=== PATIENT | male | born 1985 | race Caucasian/White ===

== ENCOUNTER 2017-12-07 18:15 | Emergency (ER) | payer SELFPAY ==
[2017-12-07 18:19] VITALS: BP 149/80; PULSE 84; RESP 16; TEMP 36.6; O2SAT 99; BMI 31.1
--- NOTE | 2017-12-07 18:37 | DI.RAD.S_ITS ---
PROCEDURE: XR HAND RT MIN 3V INDICATIONS: injury, swelling, red streaks, retained FB? TECHNIQUE: 3 views of the right hand acquired. COMPARISON: None. FINDINGS: Bones: No fractures or dislocations. Carpal bones are normally aligned. No suspicious bony lesions. Soft tissues: There is a small linear density measuring approximately 1 mm within the 1st digit in the volar soft tissues at the level of the 1st proximal phalanx distally. Elsewhere, no definite radiopaque foreign body identified. IMPRESSION: 1. Small linear density within the 1st digit of indeterminate etiology. Recommend correlation with clinical exam and history. Dictated by: Cole Wolfe M.D. on 12/07/2017 at 19:25 Approved by: Cole Wolfe M.D. on 12/07/2017 at 19:30
--- NOTE | 2017-12-07 18:56 | ED.WOUNDLAC ---
HPI - Wound/Laceration General Chief Complaint: Wound/Laceration Stated Complaint: SWELLING OF RT HAND RED LINE Time Seen by Provider: 12/07/17 18:17 Source: patient Mode of arrival: ambulatory Limitations: no limitations History of Present Illness HPI narrative: Patient presents to the emergency department today with a chief complaint of pain, swelling, redness and red streaks on his right hand since a work related injury about 3 weeks ago. He states that he was working in a freezer at work and suffered a small laceration on the dorsum of his right hand and thought nothing of it until the past few days when it started swelling and causing increasing pain he denies any chance of foreign body. He states his tetanus is current Onset (ago): week(s) Extremity Location: Right: hand Place: work Patient tetanus UTD: Yes Context: accidental Associated symptoms: none Treatments prior to arrival: bandage Related Data Previous Rx's Medication Instructions Recorded doxycycline hyclate 100 mg PO BID #20 tab 12/07/17 Allergies Allergy/AdvReac Type Severity Reaction Status Date / Time No Known Drug Allergies Allergy Verified 12/07/17 18:19 Review of Systems Review of Systems All systems reviewed & are unremarkable except as noted in HPI and below Constitutional Denies chills, Denies fever(s), Denies lethargy and Denies weakness Eyes Denies change in vision, Denies eye discharge, Denies irritation and Denies loss of vision ENT Ears, Nose, Mouth, and Throat: Denies change in voice, Denies neck pain and Denies sore throat Cardiovascular Denies chest pain, Denies irregular heart rhythm, Denies lightheadedness, Denies palpitations, Denies dyspnea, Denies dyspnea on exertion and Denies orthopnea Respiratory Denies cough, Denies dyspnea, Denies dyspnea on exertion and Denies wheezing Gastrointestinal Gastrointestinal: Denies abdominal pain, Denies change in bowel habits, Denies diarrhea, Denies nausea and Denies vomiting Musculoskeletal Denies neck pain Integumentary/Breasts Denies pruritus, Reports erythema, Denies rash and Reports wounds Neurologic Denies loss of vision and Denies weakness Endocrine Denies palpitations Allergic/Immunologic Denies wheezing PFSH Social History marital status: unmarried,single household members: other lives independently: Yes caregiver/support person: No housing: house Smoking Status: Never smoker Smokeless tobacco user: chewing tobacco alcohol intake: current substance use type: does not use Exam Narrative Exam Narrative: Healthy, pleasant 32-year-old male in no significant distress, though slightly anxious Initial Vital Signs Initial Vital Signs: Vital Signs Temperature 97.8 F 12/07/17 18:19 Pulse Rate 84 12/07/17 18:19 Respiratory Rate 16 12/07/17 18:19 Blood Pressure 149/80 H 12/07/17 18:19 Pulse Oximetry 99 12/07/17 18:19 Const General: cooperative and well developed Nutritional Appearance: well nourished Orientation: alert, awake, oriented x3 and not confused HENMT Head: normocephalic and atraumatic Ears: external ears normal and TM's normal bilaterally Nose: external nose normal and No nasal discharge Face and sinus: sinuses nontender, face symmetric, no sinus tenderness and No dry mucous membranes Mouth: oral mucosae normal and moist mucous membranes Teeth and gingiva: dentition normal Throat: tonsils normal and uvula midline Resp Effort & Inspection: normal respiratory effort, able to speak in complete sentences, no respiratory distress and no use of accessory muscles Auscultation: clear to auscultation bilaterally, no rales, no rhonchi and no wheezes GI Inspection: non-distended Palpation: soft, no hepatosplenomegaly, No guarding, No pulsatile mass and No tender Auscultation: normal bowel sounds Back/Spine/Pelvis Back: No CVA tenderness Cervical Spine: cervical ROM normal and No pain with cervical ROM Thoracic/Lumbar Spine: thoracic and lumbar spine normal to inspection Skin General: no rashes or lesions noted, erythema, No jaundice and No petechiae Trauma: puncture Other: Small slightly fluctuant poorly healing wound on the volar aspect of right hand in proximal web space of 2nd and 3rd fingers. There is minimal lymphangitis extending up the dorsal aspect of the hand and wrist Procedures Abscess I/D Site: hand Side (if applicable): right Local Anesthetic: lidocaine 1% and with bicarb Amount of anesthesia used (mL): 3 Technique: incised with #11 blade Amount of fluid expressed (mL): 1.0 Irrigation: No Packing used?: none Course Orders Ordered: ED Orders 12/07/17 18:37 XR hand RT min 3V Stat Discontinued Medications Hydrocodone Bitart/Acetaminophen (Vicodin Prepack) 1 bottle MISC SEEINSTR ONE Stop: 12/07/17 19:17 Last Admin: 12/07/17 19:19 Dose: 1 bottle Doxycycline Hyclate (Vibramycin) 100 mg PO NOW ONE Stop: 12/07/17 18:55 Last Admin: 12/07/17 19:19 Dose: 100 mg Vital Signs - 8 hr 12/07/17 18:19 Temperature 97.8 F Pulse Rate 84 Respiratory Rate 16 Blood Pressure 149/80 H Pulse Oximetry 99 MDM - Wound/Laceration Differential Diagnosis Differential diagnosis: Likely laceration, abscess, abrasion and avulsion of skin Medical Records Attestation: I reviewed the patient's medical records. Discharge Plan Departure Patient Disposition: Home, Self-Care Clinical Impression: Abscess Instructions: DI for Skin Abscess Activity Restrictions/Additional Instructions: *You have been diagnosed with [ small abscess right hand ] *What to do: *Take medications as directed *Follow up with your primary care provider in 2-3 days *Return to ER if you should have any new, worsening or concerning symptoms Prescriptions: New doxycycline hyclate 100 mg tablet 100 mg PO BID Qty: 20 RF: 0
[2017-12-07] MEDS: DOXYCYCLINE HYCLATE 100 MG TABLET PO (19:19)
[2017-12-07] MEDS: HYDROCODONE/ACET 5/325 PREPACK 1 BOTTLE MISC (19:19)
[2017-12-07 19:29] VITALS: BP 126/84; PULSE 84; RESP 18; O2SAT 100
== END 2017-12-07 19:30 | disposition home or self-care (01) ==
PROVIDERS: Emergency Provider Emergency Medicine
DX: L02.511 Cutaneous abscess of right hand (principal); Y99.0 Civilian activity done for income or pay
CPT/HCPCS: 10060; 73130; 99283

== ENCOUNTER 2017-12-16 07:04 | Emergency (ER) | payer SELFPAY ==
[2017-12-16 07:23] VITALS: BP 132/85; PULSE 68; RESP 12; TEMP 36.6; O2SAT 100
--- NOTE | 2017-12-16 07:51 | ED.NECK ---
HPI - Neck Pain/Injury General Chief Complaint: Neck Pain/Injury Stated Complaint: TIGHTNESS IN NECK, POSSIBLE STD Time Seen by Provider: 12/16/17 07:10 History of Present Illness HPI Narrative: HPI 32-year-old male presents for evaluation of lower anterior throat mild discomfort that is been present for approximately 7 days and is without sinus congestion, postnasal drip, difficulty swallowing, or neck stiffness. Patient is concerned that he may have an STD as he was sexually active 2 weeks ago with a female partner who now has pending evaluation for gonorrhea and chlamydia (test results will be returned later today via the partners PCP). Otherwise, no new sexual contacts. Patient also notes a mild area of erythema on the base of his penis immediately proximal to the foreskin that is painless solving. Patient notes that the skin on his penis with impact just with mild redness. Patient denies dysuria, fevers, chills, headache, changes in vision or hearing, or ear pain. M/S/F/SocHx notable for: please see HPI; remainder reviewed with patient and in chart. ROS: Negative constitutional, eye, cardiovascular, pulmonary, GI, , MSK, skin, neurologic, psychiatric, endocrine unless noted in the HPI. Exam Gen: Pleasant, non-toxic appearing, resting comfortably. HEENT: Normocephalic, atraumatic. * Ears - TMs obscured by cerumen bilaterally, bilateral external auditory canals without erythema, inflammation, or swelling, bilateral mastoids nontender without overlying erythema, swelling, or warmth. * Eyes - Bilateral eyes without injection, swelling, or discharge, no proptosis or periorbital erythema, swelling, warmth, or tenderness. * Mouth - Anterior oropharynx with MMM, no lesions appreciated, floor of the mouth is soft and without swelling. Posterior oropharynx without swelling, exudate, erythema, lesions, or post-nasal drip, uvula midline. * Nose - Nares without crusting or discharge. * Neck - Neck supple without posterior anterior cervical chain lymphadenopathy bilaterally. Resp: Clear to auscultation bilaterally, normal work of breathing without accessory muscle usage. Card: Regular rate and rhythm with no murmurs, rubs or gallops. Extremities warm and well perfused. GI: Non-tender to palpation throughout all quadrants, no masses or organomegaly appreciated. : Visually normal uncircumcised male genitalia, bilateral testes and epididymis, scrotum, and penis non-tender to palpation and without palpable abnormalities bilaterally. Foreskin is retracts and reduces easily. Possible mild erythema on left distal dorsal shaft of the penis immediately proximal to the base of the foreskin, otherwise lesions appreciated, no discharge. Bilateral cremasteric reflexes present. No visual bulging in the inguinal crease bilaterally both at rest and with valsalva, no palpable protuberance to palpation in the inguinal canals bilaterally both at rest and with valsalva. MSK: No visible deformities, strength and tone without visually appreciable deficit. Neuro: AO x 3, no facial asymmetry, vision and hearing WNL. Heme/Lymph: Deferred Skin: Normal color with no visible lesions (other than noted above). Psych: Mood and affect appropriate. Labs / Imaging (pertinent): GC (UA) and GC oropharyngeal pending. MDM Previous chart, nursing note, labs, imaging, and vitals reviewed. A: 32-year-old male presents for evaluation of lower anterior throat mild discomfort that is been present for approximately 7 days and is without sinus congestion, postnasal drip, difficulty swallowing, or neck stiffness; also notes mild erythema on the dorsal/distal aspect of the shaft of the penis. DDx: gonorrhea, chlamydia, syphilis, and Haemophilus ducreyi,pharyngitis (HSV vs viral NOS vs GAS vs gonoccocal vs bacterial NOS)], EBV, HIV, candidiasis, sinusitis (bacterial, viral), peritonsillar cellulitis, OUTDOOR EMER[employer] TECH[employer]ICIAN, RPA, David's angina, epiglottitis. Evaluation: HEENT exam without evidence of clinically appreciable pathology, patient swallowing well, no evidence of immunocompromise, no neck stiffness. No of clear evidence of esophagitis. Recommend watchful waiting. GC throat swab sent. Patient instructed to return to care if his partner test positive, will be called back if GC is positive.. Genital exam without evidence of clinically significant lesions. Based upon history there does not appear to have been a chancre (now resolved). GC sent and pending. Given the absence of dysuria immediate treatment is not presently indicated. Patient was notified of their elevated blood pressure and recommended to follow up with their primary care physician. As the patient is without evidence of acute end organ dysfunction no further emergent evaluation is indicated as per the 2013 [facility] clinical policy. Disposition: Discharge with return to care as needed. Return to care indications provided. Impression: sore throat (please reference below for remainder of encounter information) Related Data Previous Rx's Medication Instructions Recorded doxycycline hyclate 100 mg PO BID #20 tab 12/07/17 Allergies Allergy/AdvReac Type Severity Reaction Status Date / Time No Known Drug Allergies Allergy Verified 12/07/17 18:19 PFSH Social History marital status: unmarried,single household members: other lives independently: Yes caregiver/support person: No housing: house Smoking Status: Never smoker Smokeless tobacco user: chewing tobacco alcohol intake: current substance use type: does not use Exam Initial Vital Signs Initial Vital Signs: Vital Signs Temperature 98 F 12/16/17 07:23 Pulse Rate 68 12/16/17 07:23 Respiratory Rate 12 12/16/17 07:23 Blood Pressure 132/85 H 12/16/17 07:23 Pulse Oximetry 100 12/16/17 07:23 Course Orders Ordered: ED Orders 12/16/17 07:34 GC Screen Stat 12/16/17 07:35 GC Screen Stat Vital Signs - 8 hr 12/16/17 07:23 Temperature 98 F Pulse Rate 68 Respiratory Rate 12 Blood Pressure 132/85 H Pulse Oximetry 100 Discharge Plan Departure Prescriptions: No Action doxycycline hyclate 100 mg tablet 100 mg PO BID Qty: 20 RF: 0
[2017-12-18 11:20] LABS: C.trachomatis RNA Not detected (Not detected); N.gonorrhoeae RNA Not detected (Not detected)
== END 2017-12-16 08:29 | disposition home or self-care (01) ==
PROVIDERS: Emergency Provider Emergency Medicine
DX: J02.9 Acute pharyngitis, unspecified (principal)
CPT/HCPCS: 87491; 87591; 99282; 99283

== ENCOUNTER → 2019-02-05 11:25 | Outpatient (CLI) | payer OTHER, SELFPAY | PROVIDERS: PCP Family Medicine; Visit Provider Family Medicine | DX: T81.31XA Disruption of external operation (surgical) wound, not elsewhere classified, initial encounter (principal); S61.101A Unspecified open wound of right thumb with damage to nail, initial encounter | CPT/HCPCS: 11043; 99203; 99212 ==

== ENCOUNTER 2019-03-08 21:17 | Emergency (ER) | payer OTHER, SELFPAY ==
[2019-03-08 21:21] VITALS: BP 137/82; PULSE 84; RESP 18; TEMP 36.7; O2SAT 97
[2019-03-08 21:24] VITALS: BP 137/82; PULSE 84; RESP 18; TEMP 36.7; O2SAT 97; BMI 31.6
--- NOTE | 2019-03-08 21:32 | PC.NURSE ---
Pt told to come in for wound vac alarms. Loose connection found at quick release geophysical computer. Wrapped with OP Site in an attempt to occlude any air leak. Prior to opsite placment every wiggle of connector a visible movment or jump in the fluid within the tubing would occur. After opsite placment no jumd of fluid occurs.
--- NOTE | 2019-03-08 21:33 | ED_ITS ---
HPI - Recheck/Abnormal Lab/Rx General Chief Complaint: Recheck/Abnormal Lab/Rx Stated Complaint: Wound vaccum thinks is not acting right Time Seen by Provider: 03/08/19 21:19 Source: patient and family Mode of arrival: ambulatory Limitations: no limitations History of Present Illness HPI narrative: 33-year-old male nonsmoker presents with his significant other for evaluation of a malfunctioning wound VAC. The patient had a revision of a surgery on his left thumb on Saturday and of wound VAC was placed. Earlier today the machine started reading an error suggesting occlusion and low pressure. He called [facility] and was told to come here for evaluation. He has no pain or drainage. He denies any fever or chills. He has an appointment tomorrow morning at 8:45 a.m. complaint: wound re-check Related Data Previous Rx's Medication Instructions Recorded doxycycline hyclate 100 mg PO BID #20 tab 12/07/17 Allergies Allergy/AdvReac Type Severity Reaction Status Date / Time No Known Drug Allergies Allergy Verified 03/08/19 21:27 Review of Systems Constitutional Denies chills, Denies fever(s), Denies lethargy and Denies weakness Eyes Denies change in vision, Denies eye discharge, Denies irritation and Denies loss of vision ENT Ears, Nose, Mouth, and Throat: Denies change in voice, Denies neck pain and Denies sore throat Cardiovascular Denies chest pain, Denies irregular heart rhythm, Denies lightheadedness, Denies palpitations, Denies dyspnea, Denies dyspnea on exertion and Denies orthopnea Respiratory Denies cough, Denies dyspnea, Denies dyspnea on exertion and Denies wheezing Gastrointestinal Gastrointestinal: Denies abdominal pain, Denies change in bowel habits, Denies diarrhea, Denies nausea and Denies vomiting Genitourinary Denies hematuria, Denies flank pain, Denies urinary incontinence and Denies urinary urgency Musculoskeletal Denies neck pain Integumentary/Breasts Denies pruritus, Denies erythema, Denies rash and Denies wounds Neurologic Denies confusion, Denies loss of vision and Denies weakness Psychiatric Denies anxiety, Denies confusion, Denies depression, Denies homicidal ideation and Denies suicidal ideation Endocrine Denies palpitations Hematologic/Lymphatic Denies easy bruising Allergic/Immunologic Denies wheezing [facility] Social History (Updated 12/07/17 @ 19:24 by Isma Rosales DO) marital status: unmarried,single household members: other lives independently: Yes caregiver/support person: No housing: house Smoking Status: Never smoker Smokeless tobacco user: chewing tobacco alcohol intake: current substance use type: does not use Social History marital status: unmarried,single household members: other lives independently: Yes caregiver/support person: No housing: house Smoking Status: Never smoker Smokeless tobacco user: chewing tobacco alcohol intake: current substance use type: does not use Exam Narrative Exam Narrative: GEN: AOx3 and in mild distress, resting comfortably EYES: Pupils are equal, round, and reactive to light and accommodation. Extraoccular muscles are intact bilaterally. There is no subconjunctival hemorrhage or exudate. CHEST: Lungs are clear to auscultation bilaterally and free of wheezes, rales, or rhonchi. Heart rate is regular rhythm, there are no murmurs, clicks, rubs, or gallops. There is no chest wall tenderness. ABD: Abdomen is soft and nontender. There is no guarding or rebound. Bowel sounds are normal in all 4 quadrants. There is no mass or organomegaly. EXT: Right thumb wrapped in postsurgical gauze. Dressings are clean, dry and intact. Wound VAC measuring 125 mmHg pressure. Tubing evaluated and there appears to be a faulty linkage about midway. When pressure is applied to this link the suction returns. Taped in place and continues to function properly SKIN: Warm, pink, and dry. No erythema or rash Initial Vital Signs Initial Vital Signs: Vital Signs Temperature 98.1 F 03/08/19 21:21 Pulse Rate 84 03/08/19 21:21 Respiratory Rate 18 03/08/19 21:21 Blood Pressure 137/82 03/08/19 21:21 Pulse Oximetry 97 03/08/19 21:21 Course Consultations Consultation #1: discussion with pediatric oncologist orthopedics at [place] (Anish). She recommends taping tubing, giving return precautions and stressing importance of follow up tomorrow morning. Vital Signs - 8 hr 03/08/19 21:21 03/08/19 21:24 Temperature 98.1 F 98.1 F Pulse Rate 84 84 Respiratory Rate 18 18 Blood Pressure 137/82 Blood Pressure [Left Arm] 137/82 Pulse Oximetry 97 97 MDM - Recheck/Abnormal Lab/Rx MDM Narrative Medical decision making narrative: Patient with postoperative complication including intermittently functioning wound VAC. Patient has no systemic findings such as fever, chills, nausea, vomiting, drainage, worsening pain. There appears to be a faulty quick connect full time paramedic which was taped in a functioning position. Patient has an appointment in less than 11 hours. He is given extensive return precautions and has had his questions answered to his apparent satisfaction Discharge Plan Departure Patient Disposition: Home Clinical Impression: Encounter for wound re-check Discharge Date/Time: 03/08/19 21:48 Interventions: ED Discharge Assessment Last Done: 03/08/19 21:47 Activity Restrictions/Additional Instructions: *You have been diagnosed with [wound check] *What to do: * continue to take medications as directed *Follow up with your orthopedist tomorrow morning as planned *Return to ER if you should have any new, worsening or concerning symptoms, such as fever, shaking chills, worsening pain, drainage or other bothersome symptoms Prescriptions: No Action doxycycline hyclate 100 mg tablet 100 mg PO BID Qty: 20 RF: 0 Referrals: Abner Rubio MD [Primary Care Provider] -
== END 2019-03-08 21:48 | disposition home or self-care (01) ==
PROVIDERS: Emergency Provider Emergency Medicine; PCP Family Medicine
DX: Z48.00 Encounter for change or removal of nonsurgical wound dressing (principal)
CPT/HCPCS: 99282

== ENCOUNTER 2019-03-25 21:53 | Emergency (ER) | payer OTHER, SELFPAY ==
[2019-03-25 22:02] VITALS: BP 150/112; PULSE 71; RESP 15; TEMP 36.7; O2SAT 96; BMI 31.6
[2019-03-25 22:17] LABS: Add Manual Diff / Slide Review NO; Basophils Absolute Auto 200 /uL (0-100); Basophils Percent Auto 1.4 % (0-2); Eosinophils Absolute Auto 100 /uL (0-450); Eosinophils Percent Auto 0.7 % (2-4); Hematocrit 46.4 % (41-53); Lymphocytes Absolute Auto 3000 /uL (1100-4500); Mean Corpuscular HGB Conc 34.5 % (30-36); Mean Corpuscular Hemoglobin 28.5 PG (26-34); Mean Corpuscular Volume 82.5 fL (80-100); Monocytes Absolute Auto 1000 /uL (0-900); Monocytes Percent Auto 9.4 % (3-14); Neutrophils Absolute Auto 6400 /uL (1500-7000); Neutrophils Percent Auto 60.5 % (50-75); Platelet Count 247 X10^3/uL (150-400); Red Blood Cell Count 5.62 X10^6/uL (4.5-5.9); Red Cell Distribution Width 13.5 % (11.6-14.8); White Blood Cell Count 10.6 X10^3/uL (4.5-11.0)
--- NOTE | 2019-03-25 22:20 | ED.RECABL ---
HPI - Recheck/Abnormal Lab/Rx General Chief Complaint: Recheck/Abnormal Lab/Rx Stated Complaint: states abnormal lab results Time Seen by Provider: 03/25/19 21:57 Source: patient Mode of arrival: ambulatory Limitations: no limitations History of Present Illness HPI narrative: 33-year-old male who is currently being treated with antibiotics for an infection in his right thumb. He had labs drawn yesterday and it resulted with a potassium being low and calcium being low. He was told to come to the emergency department for further evaluation. Related Data Previous Rx's Medication Instructions Recorded doxycycline hyclate 100 mg PO BID #20 tab 12/07/17 Allergies Allergy/AdvReac Type Severity Reaction Status Date / Time No Known Drug Allergies Allergy Verified 03/25/19 22:02 Review of Systems Constitutional Constitutional: Denies fever(s) and Denies headache(s) ENT Ears, Nose, Mouth, and Throat: Denies headache(s) Cardiovascular Cardiovascular: Denies chest pain and Denies dyspnea Respiratory Respiratory: Denies dyspnea Gastrointestinal Gastrointestinal: Denies abdominal pain Integumentary/Breasts Skin/Breast: Denies new lesions Neurologic Neurologic: Denies behavioral changes and Denies headache(s) Psychiatric Psychiatric: Denies behavioral changes Hematologic/Lymphatic Hematologic/Lymphatic: Denies easy bleeding and Denies easy bruising [facility] Medical History Infection of thumb (Acute) Social History marital status: unmarried,single household members: other lives independently: Yes caregiver/support person: No housing: house Smoking Status: Never smoker Smokeless tobacco user: chewing tobacco alcohol intake: current substance use type: does not use Social History marital status: unmarried,single household members: other lives independently: Yes caregiver/support person: No housing: house Smoking Status: Never smoker Smokeless tobacco user: chewing tobacco alcohol intake: current substance use type: does not use Exam Initial Vital Signs Initial Vital Signs: Vital Signs Temperature 98.0 F 03/25/19 22:02 Pulse Rate 71 03/25/19 22:02 Respiratory Rate 15 03/25/19 22:02 Blood Pressure 150/112 H 03/25/19 22:02 Pulse Oximetry 96 03/25/19 22:02 Const General: cooperative and comfortable Orientation: alert and awake HENMT Head: normal to inspection and normocephalic Resp Effort & Inspection: normal respiratory effort Cardio Rate: regular rate Extrem Other: Right thumb with splint in place PICC line in left upper extremity Psych Appearance: grossly normal Course Orders Ordered: ED Orders 03/25/19 22:05 Complete Blood Count AUTO DIFF Stat Comprehensive Metabolic Panel Stat Vital Signs Vital signs: Vital Signs - 8 hr 03/25/19 22:02 Temperature 98.0 F Pulse Rate 71 Respiratory Rate 15 Blood Pressure 150/112 H Pulse Oximetry 96 MDM - Recheck/Abnormal Lab/Rx Lab Data Attestation: I reviewed the patient's lab results. Result diagrams: 03/25/19 22:05 03/25/19 22:05 Labs: Lab Results 03/25/19 03/25/19 Range/Units 22:05 22:05 WBC 10.6 (4.5-11.0) X10^3/uL RBC 5.62 (4.5-5.9) X10^6/uL Hgb 16.0 (13.5-17.5) g/dL Hct 46.4 (41-53) % MCV 82.5 (80-100) fL MCH 28.5 (26-34) PG MCHC 34.5 (30-36) % RDW 13.5 (11.6-14.8) % Plt Count 247 (150-400) X10^3/uL Neut % (Auto) 60.5 (50-75) % Lymph % (Auto) 28.0 (25-40) % Jack % (Auto) 9.4 (3-14) % Eos % (Auto) 0.7 L (2-4) % Baso % (Auto) 1.4 (0-2) % Neut # (Auto) 6400 (7239-6473) /uL Lymph # (Auto) 3000 (1781-4864) /uL Jack # (Auto) 1000 H (0-900) /uL Eos # (Auto) 100 (0-450) /uL Baso # (Auto) 200 H (0-100) /uL Sodium 139 (137-145) mmol/L Potassium 4.1 (3.4-5.1) mmol/L Chloride 104 (98-107) mmol/L Carbon Dioxide 26 (22-32) mmol/L BUN 18 (9-20) mg/dL Creatinine 0.90 (0.66-1.25) mg/dL Estimated GFR > 60.0 (>60) mL/min BUN/Creatinine Ratio 20.0 (6-22) Glucose 138 H (70-100) mg/dL Calcium 9.3 (8.4-10.2) mg/dL Total Bilirubin 0.4 (0.2-1.3) mg/dL AST 44 (17-59) IU/L ALT 48 (21-72) IU/L Alkaline Phosphatase 75 (38-126) U/L Total Protein 7.8 (6.3-8.2) g/dL Albumin 4.4 (3.5-5.0) g/dL Globulin 3.4 (1.7-4.1) g/dL Albumin/Globulin Ratio 1.3 (1.0-2.8) MDM Narrative Medical decision making narrative: Patient's labs here in the emergency department or unremarkable. Patient was given a copy these. No indication for further workup. He was given return precautions. He expressed understanding and agreement with plan. Discharge Plan Departure Patient Disposition: Home Clinical Impression: Alteration in lab values Activity Restrictions/Additional Instructions: Your lab values that were drawn in the emergency department are unremarkable. We did not reproduce the abnormalities that were seen in your prior lab draw yesterday. Give the copy of the labs you were given this evening to your doctor. Return to the emergency department for any new or worsening symptoms Prescriptions: No Action doxycycline hyclate 100 mg tablet 100 mg PO BID Qty: 20 RF: 0 Referrals: Abner Rubio MD [Primary Care Provider] -
[2019-03-25 22:27] LABS: Alanine Aminotransferase 48 IU/L (21-72); Albumin 4.4 g/dL (3.5-5.0); Albumin Globulin Ratio 1.3 (1.0-2.8); Alkaline Phosphatase 75 U/L (38-126); Aspartate Aminotransferase 44 IU/L (17-59); Bilirubin Total 0.4 mg/dL (0.2-1.3); Blood Urea Nitrogen 18 mg/dL (9-20); Calcium 9.3 mg/dL (8.4-10.2); Carbon Dioxide 26 mmol/L (22-32); Chloride 104 mmol/L (98-107); Estimated Glomerular Filt Rate > 60.0 mL/min (>60); Globulin 3.4 g/dL (1.7-4.1); Glucose 138 mg/dL (70-100); Potassium 4.1 mmol/L (3.4-5.1); Sodium 139 mmol/L (137-145); Total Protein 7.8 g/dL (6.3-8.2)
[2019-03-25 22:29] LABS: HEMOLYSIS 53 (0-50)
[2019-03-25 22:50] VITALS: BP 132/78; PULSE 67; O2SAT 95
== END 2019-03-25 22:51 | disposition home or self-care (01) ==
PROVIDERS: Emergency Provider Emergency Medicine; PCP Family Medicine
DX: R89.9 Unspecified abnormal finding in specimens from other organs, systems and tissues (principal)
CPT/HCPCS: 36415; 80053; 85025; 99282; 99283; J1642

== ENCOUNTER 2019-06-12 17:29 | Emergency (ER) | payer OTHER, SELFPAY ==
[2019-06-12 17:40] VITALS: BP 161/87; PULSE 72; RESP 16; TEMP 36.8; O2SAT 98; BMI 30.3
--- NOTE | 2019-06-12 17:42 | DI.RAD.S_ITS ---
PROCEDURE: XR FINGER RT MIN 2V INDICATIONS: ?post op infection, hx osteo TECHNIQUE: AP hand, 2 views of the 1st finger(s) acquired. COMPARISON: [facility], CR, XR HAND RT MIN 3V, 12/07/2017, 18:18. Correlation is made with hand MRI 12/12/18. FINDINGS: Bones: There are postoperative pins seen within the right thumb. This somewhat limits evaluation for subtle bony changes. However, there does appear to be bony lysis along the distal aspect of the proximal phalanx of the thumb. No additional local bony abnormalities are seen. Soft tissues: No suspicious soft tissue calcifications. IMPRESSION: Postoperative changes are seen. Focal bony lysis can be seen involving the distal aspect of the proximal phalanx of the thumb. Differential diagnosis for this includes osteomyelitis. Please correlate with patient history, physical examination findings, and any outside relevant imaging. Dictated by: Justin Agee M.D. on 06/12/2019 at 17:18 Approved by: Justin Agee M.D. on 06/12/2019 at 17:21
--- NOTE | 2019-06-12 17:46 | ED.UPPEXIN ---
HPI - Extremity Injury (Upper) <HENOK Castro - Last Filed: 06/12/19 21:01> General Chief Complaint: Extremity Injury, Upper Stated Complaint: thumb right hand, thinks may be infected Time Seen by Provider: 06/12/19 17:32 Source: patient Mode of arrival: Ambulatory Limitations: no limitations History of Present Illness HPI narrative: The patient is a 33-year-old male nonsmoker with history of a right thumb injury who presents for chief complaint of a possible postoperative infection. He states he has 3 pins in his right thumb, received surgery by Dr. Renato Glez with [facility]. States that he had a postoperative osteomyelitis, was placed on ertapenem and Levaquin. He stop taking these several months ago. He noted that earlier today he had a slight amount of drainage where one of his pins exits the skin. He states he cleaned it off, and has not had any since. He denies any abnormal swelling or redness of his thumb. He states that he has normal range of motion for him. He states his and initial injury was after punching a glass window while intoxicated. Related Data Previous Rx's Medication Instructions Recorded doxycycline hyclate 100 mg PO BID #20 tab 12/07/17 Allergies Allergy/AdvReac Type Severity Reaction Status Date / Time No Known Drug Allergies Allergy Verified 03/25/19 22:02 Review of Systems <HENOK Castro - Last Filed: 06/12/19 21:01> Review of Systems Narrative: GENERAL: Denies chills, fatigue, malaise, fever, sweats. HEENT: Denies sinus pain, ear pain, sore throat, difficulty swallowing, dizziness. RESPIRATORY: Denies dyspnea, cough, wheezing, hemoptysis, sputum. CARDIOVASCULAR: Denies chest pain, palpitations, orthopnea, edema, GASTROINTESTINAL: Denies nausea, vomiting, abdominal pain, diarrhea, constipation, melena. : Denies dysuria, frequency, incontinence, hematuria, urinary retention. MUSCULOSKELETAL: See HPI SKIN: See HPI NEUROLOGIC: Denies weakness, headache, numbness, change in speech, confusion, seizures, incoordination. PSYCHIATRIC: No concerning psychosocial issues. 12 point review of systems is negative except for those stated above Patient History <HENOK Castro - Last Filed: 06/12/19 21:01> Medical History Infection of thumb (Acute) Social History marital status: unmarried,single household members: other lives independently: Yes caregiver/support person: No housing: house Smoking Status: Never smoker Smokeless tobacco user: chewing tobacco alcohol intake: current substance use type: does not use alcohol intake frequency: holidays/special occasions only Substance Use Type: does not use Exam <HENOK Castro - Last Filed: 06/12/19 21:01> Narrative Exam Narrative: GENERAL: This is a well-nourished, well-developed patient, no acute distress HEAD: Atraumatic. Normocephalic. No temporal or scalp tenderness. EYES: Pupils equal round and reactive. Extraocular motions intact. No scleral icterus. No injection or drainage. ENT: Nose without bleeding, purulent drainage or septal hematoma. Throat without erythema, tonsillar hypertrophy or exudate. Uvula midline. Airway patent. NECK: Trachea midline. No JVD or lymphadenopathy. Supple, nontender, no meningeal signs. CARDIOVASCULAR: Regular rate and rhythm RESPIRATORY: No cough. No increased respiratory effort. No accessory muscle use. EXTREMITIES: Decreased range of motion right thumb. Capillary refill less than 2 seconds. No change in range of motion for patient see skin exam BACK: Nontender without deformity or crepitance. No flank tenderness. NEURO: AOx3. SKIN: Right thumb with postoperative changes, no obvious drainage. K wire very slightly out of tip of thumb. No noted swelling or changes. No drainage. No palpable warmth. Initial Vital Signs Initial Vital Signs: Vital Signs Temperature 98.2 F 06/12/19 17:40 Pulse Rate 72 06/12/19 17:40 Respiratory Rate 16 06/12/19 17:40 Blood Pressure 161/87 H 06/12/19 17:40 Pulse Oximetry 98 06/12/19 17:40 <Isma Rosales DO - Last Filed: 06/13/19 02:03> Initial Vital Signs Initial Vital Signs: Vital Signs Temperature 98.2 F 06/12/19 17:40 Pulse Rate 72 06/12/19 17:40 Respiratory Rate 16 06/12/19 17:40 Blood Pressure 161/87 H 06/12/19 17:40 Pulse Oximetry 98 06/12/19 17:40 Course <HENOK Castro - Last Filed: 06/12/19 21:01> Orders Ordered: ED Orders 06/12/19 17:42 XR finger RT min 2V Stat 06/12/19 18:18 C-Reactive Protein Quant Stat Complete Blood Count AUTO DIFF Stat Comprehensive Metabolic Panel Stat Erythrocyte Sedimentation Rate Stat Reevaluation(s) Reevaluation #1: Spoke with Dr. Oconnell, on-call for Dr. Glez. Discussed no leukocytosis, no elevation of ESR or CRP. She will speak with the patient's surgeon and then call back with recommendations. Discussed that the patient has no signs or symptoms of systemic infection, no fevers vomiting or diarrhea. Time: 19:20 Reevaluation #2: Spoke with [facility] again, she states she will try to get him in for an appointment at 9:00 a.m. on Saturday. She states 10 not start antibiotics unless there are obvious signs of infection such as surrounding erythema or drainage. Discussed this with the patient, elected to defer at this time as he has no surrounding erythema, no noted drainage etc. Time: 19:45 Reevaluation #3: Spoke with Orthopedics from [facility], patient has an appointment for 9:00 a.m. on Saturday morning at the orthopedic clinic discussed this with patient Time: 20:09 Vital Signs Vital signs: Vital Signs - 8 hr 06/12/19 20:19 Pulse Rate 66 Respiratory Rate 17 Blood Pressure 137/78 Pulse Oximetry 99 <Isma Rosales DO - Last Filed: 06/13/19 02:03> Orders Ordered: ED Orders 06/12/19 17:42 XR finger RT min 2V Stat 06/12/19 18:18 C-Reactive Protein Quant Stat Complete Blood Count AUTO DIFF Stat Comprehensive Metabolic Panel Stat Erythrocyte Sedimentation Rate Stat Vital Signs Vital signs: Vital Signs - 8 hr 06/12/19 20:19 Pulse Rate 66 Respiratory Rate 17 Blood Pressure 137/78 Pulse Oximetry 99 MDM - Extremity Injury (Upper) <HENOK Castro - Last Filed: 06/12/19 21:01> Lab Data Result diagrams: 06/12/19 18:18 06/12/19 18:18 Labs: Lab Results 06/12/19 06/12/19 Range/Units 18:18 18:18 WBC 7.2 (4.5-11.0) X10^3/uL RBC 5.92 H (4.5-5.9) X10^6/uL Hgb 17.2 (13.5-17.5) g/dL Hct 48.7 (41-53) % MCV 82.3 (80-100) fL MCH 29.1 (26-34) PG MCHC 35.3 (30-36) % RDW 13.6 (11.6-14.8) % Plt Count 217 (150-400) X10^3/uL Neut % (Auto) 50.1 (50-75) % Lymph % (Auto) 37.0 (25-40) % [place] % (Auto) 10.5 (3-14) % Eos % (Auto) 1.3 L (2-4) % Baso % (Auto) 1.1 (0-2) % Neut # (Auto) 3600 (6188-0022) /uL Lymph # (Auto) 2700 (5123-2451) /uL [place] # (Auto) 800 (0-900) /uL Eos # (Auto) 100 (0-450) /uL Baso # (Auto) 100 (0-100) /uL ESR 1 (0-15) MM/HR Sodium 142 (137-145) mmol/L Potassium 4.5 (3.4-5.1) mmol/L Chloride 105 (98-107) mmol/L Carbon Dioxide 27 (22-32) mmol/L BUN 17 (9-20) mg/dL Creatinine 1.10 (0.66-1.25) mg/dL Estimated GFR > 60.0 (>60) mL/min BUN/Creatinine Ratio 15.5 (6-22) Glucose 112 H (70-100) mg/dL Calcium 9.7 (8.4-10.2) mg/dL Total Bilirubin 0.7 (0.2-1.3) mg/dL AST 40 (17-59) IU/L ALT 51 H (<50) IU/L Alkaline Phosphatase 68 (38-126) U/L C-Reactive Protein 0.6 (<1.0) mg/dL Total Protein 7.9 (6.3-8.2) g/dL Albumin 4.7 (3.5-5.0) g/dL Globulin 3.2 (1.7-4.1) g/dL Albumin/Globulin Ratio 1.5 (1.0-2.8) Imaging Data finger xray : Radiologist's impression: [address] [address] XRay Report Signed Patient: Zhang Gallardo WMR#: [id number] : 1985Acct:[id number] Age/Sex: 33 / MDate of Service: 06/12/19 Loc: ED Accession Number: [id number] Procedure: XR finger RT min 2V Ordering Provider: Barbara Arnold-BC PROCEDURE: XR FINGER RT MIN 2V INDICATIONS: ?post op infection, hx osteo TECHNIQUE: AP hand, 2 views of the 1st finger(s) acquired. COMPARISON: [facility], CR, XR HAND RT MIN 3V, 12/07/2017, 18:18. Correlation is made with hand MRI 12/12/18. FINDINGS: Bones: There are postoperative pins seen within the right thumb. This somewhat limits evaluation for subtle bony changes. However, there does appear to be bony lysis along the distal aspect of the proximal phalanx of the thumb. No additional local bony abnormalities are seen. Soft tissues: No suspicious soft tissue calcifications. IMPRESSION: Postoperative changes are seen. Focal bony lysis can be seen involving the distal aspect of the proximal phalanx of the thumb. Differential diagnosis for this includes osteomyelitis. Please correlate with patient history, physical examination findings, and any outside relevant imaging. Dictated by: Justin Agee M.D. on 06/12/2019 at 17:18 Approved by: Justin Agee M.D. on 06/12/2019 at 17:21 [facility] Narrative Medical decision making narrative: The patient is a 33-year-old male who presents with chief complaint of a possible infection in his thumb. He has several postoperative changes. He has no signs of systemic infection, no fever vomiting diarrhea. He states that his finger does not appear any differently than prior, has no focal erythema or drainage. He does state that he had drainage earlier which is the reason for his visit today. 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 Lab work came back within normal limits with no leukocytosis, normal ESR, normal CRP. I spoke at length with the on-call physician for the patient's surgeon and the patient has an appointment for 9:00 a.m. on Saturday at the orthopedic clinic. Discussed return precautions with the patient including fever, vomiting, drainage etc. Patient has no questions or concerns states understanding of return precautions as well as follow-up care. <Isma Rosales DO - Last Filed: 06/13/19 02:03> Lab Data Labs: Lab Results 06/12/19 06/12/19 Range/Units 18:18 18:18 WBC 7.2 (4.5-11.0) X10^3/uL RBC 5.92 H (4.5-5.9) X10^6/uL Hgb 17.2 (13.5-17.5) g/dL Hct 48.7 (41-53) % MCV 82.3 (80-100) fL MCH 29.1 (26-34) PG MCHC 35.3 (30-36) % RDW 13.6 (11.6-14.8) % Plt Count 217 (150-400) X10^3/uL Neut % (Auto) 50.1 (50-75) % Lymph % (Auto) 37.0 (25-40) % [place] % (Auto) 10.5 (3-14) % Eos % (Auto) 1.3 L (2-4) % Baso % (Auto) 1.1 (0-2) % Neut # (Auto) 3600 (3971-5459) /uL Lymph # (Auto) 2700 (5538-3615) /uL [place] # (Auto) 800 (0-900) /uL Eos # (Auto) 100 (0-450) /uL Baso # (Auto) 100 (0-100) /uL ESR 1 (0-15) MM/HR Sodium 142 (137-145) mmol/L Potassium 4.5 (3.4-5.1) mmol/L Chloride 105 (98-107) mmol/L Carbon Dioxide 27 (22-32) mmol/L BUN 17 (9-20) mg/dL Creatinine 1.10 (0.66-1.25) mg/dL Estimated GFR > 60.0 (>60) mL/min BUN/Creatinine Ratio 15.5 (6-22) Glucose 112 H (70-100) mg/dL Calcium 9.7 (8.4-10.2) mg/dL Total Bilirubin 0.7 (0.2-1.3) mg/dL AST 40 (17-59) IU/L ALT 51 H (<50) IU/L Alkaline Phosphatase 68 (38-126) U/L C-Reactive Protein 0.6 (<1.0) mg/dL Total Protein 7.9 (6.3-8.2) g/dL Albumin 4.7 (3.5-5.0) g/dL Globulin 3.2 (1.7-4.1) g/dL Albumin/Globulin Ratio 1.5 (1.0-2.8) Discharge Plan Departure Patient Disposition: Home Clinical Impression: Encounter for postoperative wound check Discharge Date/Time: 06/12/19 20:21 Instructions: How to Care for a Surgical Wound, DI for Wound Infection Activity Restrictions/Additional Instructions: Today your lab work is very reassuring, with no elevated white blood count or inflammatory markers. I spoke at length with the on-call surgeon for Dr Glez and we have set it for you an appointment at 9:00 a.m. at the orthopedic clinic with one of your surgeons physician community assistant. Please monitor for fever, vomiting, drainage etc. Please come back to emergency department for any acute concerns. Please follow up with primary care provider as well as the [facility] surgeon as we have scheduled for you. Prescriptions: No Action doxycycline hyclate 100 mg tablet 100 mg PO BID Qty: 20 RF: 0 Referrals: Abner Rubio MD [Primary Care Provider] -
--- NOTE | 2019-06-12 17:56 | PC.NURSE ---
no pus or drainage noted out of thumb. reconstruction surgery has 3 pins in his thumb to be removed in June. no fever.
[2019-06-12 18:31] LABS: Add Manual Diff / Slide Review NO; Basophils Absolute Auto 100 /uL (0-100); Basophils Percent Auto 1.1 % (0-2); Eosinophils Absolute Auto 100 /uL (0-450); Eosinophils Percent Auto 1.3 % (2-4); Hematocrit 48.7 % (41-53); Hemoglobin 17.2 g/dL (13.5-17.5); Lymphocytes Absolute Auto 2700 /uL (1100-4500); Mean Corpuscular HGB Conc 35.3 % (30-36); Mean Corpuscular Hemoglobin 29.1 PG (26-34); Mean Corpuscular Volume 82.3 fL (80-100); Monocytes Absolute Auto 800 /uL (0-900); Monocytes Percent Auto 10.5 % (3-14); Neutrophils Absolute Auto 3600 /uL (1500-7000); Neutrophils Percent Auto 50.1 % (50-75); Platelet Count 217 X10^3/uL (150-400); Red Blood Cell Count 5.92 X10^6/uL (4.5-5.9); Red Cell Distribution Width 13.6 % (11.6-14.8); White Blood Cell Count 7.2 X10^3/uL (4.5-11.0)
[2019-06-12 18:42] LABS: Alanine Aminotransferase 51 IU/L (<50); Albumin 4.7 g/dL (3.5-5.0); Albumin Globulin Ratio 1.5 (1.0-2.8); Alkaline Phosphatase 68 U/L (38-126); Aspartate Aminotransferase 40 IU/L (17-59); BUN Creatinine Ratio 15.5 (6-22); Bilirubin Total 0.7 mg/dL (0.2-1.3); Blood Urea Nitrogen 17 mg/dL (9-20); C-Reactive Protein Quant 0.6 mg/dL (<1.0); Calcium 9.7 mg/dL (8.4-10.2); Carbon Dioxide 27 mmol/L (22-32); Chloride 105 mmol/L (98-107); Estimated Glomerular Filt Rate > 60.0 mL/min (>60); Globulin 3.2 g/dL (1.7-4.1); Glucose 112 mg/dL (70-100); HEMOLYSIS < 15 (0-50); Potassium 4.5 mmol/L (3.4-5.1); Sodium 142 mmol/L (137-145); Total Protein 7.9 g/dL (6.3-8.2)
[2019-06-12 18:55] LABS: Erythrocyte Sedimentation Rate 1 MM/HR (0-15)
[2019-06-12 20:19] VITALS: BP 137/78; PULSE 66; RESP 17; O2SAT 99
== END 2019-06-12 20:21 | disposition home or self-care (01) ==
PROVIDERS: Emergency Provider Nurse Practitioner Family; PCP Family Medicine
DX: Z48.00 Encounter for change or removal of nonsurgical wound dressing (principal)
CPT/HCPCS: 36415; 73140; 80053; 85025; 85651; 86140; 99283; 99284